=== PATIENT | male | born 1965 | race Caucasian/White ===

== ENCOUNTER 2021-11-27 06:24 | Day surgery (SDC) | payer BC ==
[2021-11-22 12:13] LABS: BASOPHILS % (AUTO) 0.6 % (0-1); EOSINOPHILS # (AUTO) 0.3 X10'3 (0-0.9); EOSINOPHILS % (AUTO) 4.6 % (0-6); LYMPHOCYTES # (AUTO) 1.4 X10'3 (1.1-4.8); LYMPHOCYTES % (AUTO) 19.8 % (21-51); MEAN CORPUSCULAR HEMOGLOBIN 29.2 PG (27.0-31.0); MEAN CORPUSCULAR HGB CONC 33.4 g/dL (33.0-36.5); MEAN CORPUSCULAR VOLUME 87.3 FL (78-98); MEAN PLATELET VOLUME 8.1 FL (7.4-10.4); MONOCYTES # (AUTO) 0.5 X10'3 (0-0.9); MONOCYTES % (AUTO) 7.5 % (2-12); NEUTROPHILS # (AUTO) 4.9 X10'3 (1.8-7.7); NEUTROPHILS % (AUTO) 67.5 % (42-75); PRE OP HEMATOCRIT 49.7 % (42.0-52.0); PRE OP HEMOGLOBIN 16.6 g/dL (14.0-17.9); PRE OP PLATELET COUNT 267 X10'3 (140-440); RED CELL DISTRIBUTION WIDTH 13.2 % (11.5-14.5)
[2021-11-22 12:26] LABS: ALBUMIN 4.3 G/DL (3.4-5.0); ALBUMIN/GLOBULIN RATIO 1.3 (1.1-1.5); ALKALINE PHOSPHATASE 71 IU/L (46-116); BLOOD UREA NITROGEN 26 MG/DL (7-18); BUN/CREATININE RATIO 25.2 (5.4-32.0); CALCIUM 9.3 MG/DL (8.5-10.1); CHLORIDE 106 MMOL/L (99-107); CREATININE 1.03 MG/DL (0.60-1.10); PRE OP ALT 17 U/L (30-65); PRE OP ANION GAP 10 (8-16); PRE OP AST 12 U/L (10-37); PRE OP BILIRUB, TOTAL 0.3 MG/DL (0.0-1.0); PRE OP GLUCOSE 93 MG/DL (70-104); PRE OP POTASSIUM 4.1 MMOL/L (3.4-5.1); PRE OP SODIUM 142 MMOL/L (135-145); TOTAL CARBON DIOXIDE 25.6 MMOL/L (24-32); TOTAL PROTEIN 7.5 G/DL (6.4-8.2); eGFR 75 ML/MIN
[2021-11-27] VITALS (20 sets, daily range): BP systolic 99–146; BP diastolic 61–99
[~2021-11-27] VITALS: Ht 167.6 cm; Wt 68.4 kg
[~2021-11-27 06:24] MED LIST: ACET-2119 PO; IBUP-860 PO; MULT-1085 PO; acetaminophen 325mg tablet PO ONE; cefazolin/dext.iso 2gm/50ml IV ONE; celeCOXIB 100mg capsule PO ONE; famotidine 20mg tablet PO ONE; gabapentin 300mg capsule PO ONE; metoclopramide 5 mg/ml inj IV ONE; oxyCODONE SR 10mg (sust. release) tab -2 tabs (20mg) PO ONE; ringers solution, lacted 1,000 ML IV SCH; tranexamic acid inj. 1,000 MG in 0.7% saline 100 ML PMX IV ONE; vancomycin 1,500 MG in NS 300ml IV soln IV ONE
[2021-11-27] MEDS ORDERED: tranexamic acid inj. 720 MG in normal saline 100ml IV soln 100 ML IV ONE (06:40)
[2021-11-27] MEDS ORDERED: bisacodyl 10mg suppository rectal RC PRN (06:40)
[2021-11-27] MEDS ORDERED: HYDROcodone/acetaminophen 10/325mg tab PO PRN (06:40)
[2021-11-27] MEDS ORDERED: acetaminophen 325mg tablet PO PRN (06:40)
[2021-11-27] MEDS ORDERED: diphenhydrAMINE 25mg capsule PO PRN ×2 (06:40)
[2021-11-27] MEDS ORDERED: magnesium hydroxide 30ml (MOM) UD suspension PO PRN (06:40)
[2021-11-27] MEDS ORDERED: ondansetron/PF 4mg/2ml inj IV PRN ×2 (06:40→08:30)
[2021-11-27] MEDS ORDERED: HYDROmorphone 1 mg/ml syringe IV PRN (06:40)
--- NOTE | 2021-11-27 07:50 | NUR ---
PT PREPPED FOR LEFT HIP SURGERY, SENSATION IS INTACT, BILATERAL FEET ARE WARM AND DRY, PALPABLE PEDAL PULSES PRESENT.
[2021-11-27] MEDS ORDERED: ceFAZolin/D5W- 1GM premix 50 ML IV SCH (08:00)
[2021-11-27] MEDS: ascorbic acid 500mg tablet PO SCH ×2 (08:00→20:35)
[2021-11-27] MEDS: gabapentin 300mg capsule PO SCH ×3 (08:00→20:35)
[2021-11-27] MEDS ORDERED: vancomycin/NS 1 GM ADD-VANTAGE 250 ML IV SCH (08:00)
[2021-11-27] MEDS: multivitamins, therapeutics tablet PO SCH (08:00)
[2021-11-27] MEDS ORDERED: morphine 2 MG/ML inj. syringe IV PRN (08:30)
[2021-11-27] MEDS ORDERED: meperidine/PF 25mg/ml syringe IV PRN ×3 (08:30)
[2021-11-27] MEDS: aspirin 325mg tablet PO SCH (08:30)
[2021-11-27] MEDS ORDERED: proCHLORperazine 10 MG/2 ml inj IV PRN (08:30)
[2021-11-27] MEDS ORDERED: morphine 4 MG/ML inj SYRINge IV PRN (08:30)
[2021-11-27] MEDS ORDERED: ringers solution, lacted 1,000 ML IV SCH (08:30)
[2021-11-27] MEDS ORDERED: vancomycin 1,000mg inj ONE (09:13)
[2021-11-27] MEDS ORDERED: epiNEPHrine 1 mg/ml inj ONE (09:13)
[2021-11-27] MEDS ORDERED: cloNIDine hcl/PF 100mcg/ml inj ONE (09:13)
[2021-11-27] MEDS ORDERED: ROPIVAcaine 0.5% (5mg/ml) 30ml vial ONE (09:13)
[2021-11-27] MEDS ORDERED: ketorolac trometh. 30mg/ml inj. ONE (09:14)
[2021-11-27] MEDS ORDERED: MIDAZolam 1 MG/ML 5ML VIAL ONE (09:46)
[2021-11-27] MEDS ORDERED: FENTANYL CITRATE/PF 50 MCG/1 ML VIAL ONE (09:46)
[2021-11-27] MEDS ORDERED: propofol inj 20 ML IV ONE (10:00)
[2021-11-27] MEDS ORDERED: LIDOcaine 1%/PF 5ML 10 MG/ML VIAL ONE (10:00)
--- NOTE | 2021-11-27 11:13 | NUR ---
Received from OR via BED IN STABLE CONDITION , accompanied by Anesthesiologist and [employer] OFFICER report given by [employer] OFFICER AND Anesthesiolgist. Addendum: 11/27/21 at 1152 by Rosa Wang RN Amended: Links added.
--- NOTE | 2021-11-27 11:15 | NUR ---
DERMATOME LEVEL L1. Addendum: 11/27/21 at 1206 by Rosa Wang RN Amended: Links added.
--- NOTE | 2021-11-27 12:43 | NUR ---
PATIENT DISCHARGED FROM PACU IN STABLE CONDITION AFTER REPORT GIVEN TO RN TAKING OVER PATIENTS CARE. PATIENT TRANSFERRED TO ROOM 340B VIA BED WITH RN X2. Addendum: 11/27/21 at 1250 by Rosa Wang RN Amended: Links added.
--- NOTE | 2021-11-27 13:34 | NUR ---
Patient has not peed yet since the surgery. Bladder scan showed 225 ml. Attempted to get hold of Dr. Ashwini Fernández on his cellphone, a staff answered the call. I did not got to talk to Dr. Ashwini Fernández regarding the bladder scan volume, I heard him speaking in the background "Is this an emergency?" I replied by saying no. Dr. Ashwini Fernández said to me, I'll call you back!" Charge nurse Elena notified about this.
[2021-11-27] MEDS: potassium cl 20mEq in 1/2 NS 1,000 ML IV SCH ×3 (14:40→23:20)
[2021-11-27] MEDS: ceFAZolin/D5W- 1GM premix 50 ML IV SCH ×2 (16:24→23:20)
[2021-11-27] MEDS: HYDROcodone/acetaminophen 10/325mg tab PO PRN ×2 (16:47→23:25)
--- NOTE | 2021-11-27 18:32 | NUR ---
Patient in room [facility]. I have received report from Roberta HOLCOMB and had the opportunity to ask questions and assume patient care.
[2021-11-27] MEDS: HYDROmorphone inj. 0.5 MG/0.5 ML DISP.SYRIN IV PRN (20:36)
[2021-11-27] MEDS ORDERED: sennosides 8.6mg tablet PO SCH (21:00)
[2021-11-28] VITALS: BP 130/77
[2021-11-28 04:00] VITALS: BP 126/62
[2021-11-28] MEDS: HYDROcodone/acetaminophen 10/325mg tab PO PRN (04:05)
[2021-11-28] MEDS: HYDROmorphone inj. 0.5 MG/0.5 ML DISP.SYRIN IV PRN (05:55)
[2021-11-28 06:30] LABS: BASOPHILS % (AUTO) 0.5 % (0-1); EOSINOPHILS # (AUTO) 0.3 X10'3 (0-0.9); EOSINOPHILS % (AUTO) 4.2 % (0-6); HEMATOCRIT 40.3 % (42.0-52.0); HEMOGLOBIN 13.7 g/dl (14.0-17.9); LYMPHOCYTES # (AUTO) 1.7 X10'3 (1.1-4.8); LYMPHOCYTES % (AUTO) 22.4 % (21-51); MEAN CORPUSCULAR HEMOGLOBIN 29.3 PG (27.0-31.0); MEAN CORPUSCULAR VOLUME 86.1 FL (78-98); MEAN PLATELET VOLUME 8.3 FL (7.4-10.4); MONOCYTES # (AUTO) 0.7 X10'3 (0-0.9); MONOCYTES % (AUTO) 9.1 % (2-12); NEUTROPHILS # (AUTO) 4.8 X10'3 (1.8-7.7); NEUTROPHILS % (AUTO) 63.8 % (42-75); PLATELET COUNT 215 X10'3 (140-440); RED BLOOD COUNT 4.68 X10'6 (4.70-6.10); WHITE BLOOD COUNT 7.5 X10'3 (4.5-11.0)
--- NOTE | 2021-11-28 06:35 | NUR ---
Patient in room [facility]. I have received report from Uzma HOLCOMB and had the opportunity to ask questions and assume patient care.
--- NOTE | 2021-11-28 06:40 | NUR ---
Problems reprioritized. Patient report given, questions answered & plan of care reviewed with Liseth HOLCOMB.
[2021-11-28 06:50] LABS: ANION GAP 8 (8-16); CHLORIDE 106 MMOL/L (99-107); POTASSIUM 5.1 MMOL/L (3.5-5.1); SODIUM 140 MMOL/L (135-145); TOTAL CARBON DIOXIDE 26.3 MMOL/L (24-32)
[2021-11-28] MEDS: ascorbic acid 500mg tablet PO SCH (07:12)
[2021-11-28] MEDS: gabapentin 300mg capsule PO SCH (07:12)
[2021-11-28] MEDS: multivitamins, therapeutics tablet PO SCH (07:12)
[2021-11-28 07:30] VITALS: BP 118/69
[2021-11-28] MEDS: aspirin 325mg tablet PO SCH (08:44)
[2021-11-28] MEDS: potassium cl 20mEq in 1/2 NS 1,000 ML IV SCH (09:15)
[2021-11-28] MEDS ORDERED: celeCOXIB 100mg capsule PO SCH (20:00)
== END 2021-11-28 11:00 | disposition home or self-care (01) ==
LOC: PAS 06:24 → SUR 3N 07:01 → PAS 11-28 11:00
PROVIDERS: ATTEND Orthopaedic Surgery
DX: M16.12 Unilateral primary osteoarthritis, left hip (principal); Z79.899 Other long term (current) drug therapy; Z20.822 Contact with and (suspected) exposure to COVID-19; Z79.82 Long term (current) use of aspirin
CPT/HCPCS: 27130; 36415; 71046; 72170; 80051; 80053; 82948; 85025; 86885; 86900; 86901; 87081; 93005; 97110; 97116; 97161; 97530; C1776; J0171; J0690; J0735; J1170; J1885; J2250; J2704; J2765; J2795; J3010; J3370; J3480; J3490; J7030; J7040; J7120; U0003; U0005; Z7506; Z7508; Z7512; A4615; A7000; G0378